=== PATIENT | male | born 1980 | race Caucasian/White ===

== ENCOUNTER 2017-12-23 12:40 | Emergency (ER) | payer OTHER ==
[~2017-12-23] VITALS: Ht 182.9 cm; Wt 65.8 kg
[~2017-12-23 12:40] MED LIST: CYCL10 PO; ERYT.5TO BOTHEYES; METPRE4DP PO; Naprosyn500 MG PO; Norco 10-325 T1 EACH PO; Percocet 5-3251 EACH PO
[2017-12-23] MEDS ORDERED: ERYT1OIN BOTHEYES (14:56)
[2017-12-23] MEDS ORDERED: Norco 5-325 Ta1 EACH PO (14:56)
== END 2017-12-23 15:06 | disposition home or self-care (01) ==
LOC: ER 12:40
DX: S05.01XA Injury of conjunctiva and corneal abrasion without foreign body, right eye, initial encounter (principal); W22.8XXA Striking against or struck by other objects, initial encounter; Z88.0 Allergy status to penicillin; Z79.899 Other long term (current) drug therapy
CPT/HCPCS: 99283; J7030